=== PATIENT | male | born 1990 | race Caucasian/White ===

== ENCOUNTER 2017-08-14 18:27 | Inpatient (IN) | payer MEDICAID ==
[2017-08-14 18:56] LABS: % EOSINOPHILS 1.3 % (0.0-5.0); % MONOCYTES 6.3 % (2.0-10.0); % NEUTROPHILS 63.4 % (40.0-80.0); BASOPHILE ABSOLUTE 0.1 Th/cumm (0-0.2); EOSINOPHILE ABSOLUTE 0.1 Th/cmm (0.1-0.4); HEMATOCRIT 41.6 % (41.0-60); HEMOGLOBIN 14.1 gm/dL (12-16); MEAN CELL VOLUME 88.2 fl (80-99); MEAN CORPUSCULAR HEMOGLOBIN 29.9 pg (26.0-30.0); MEAN CORPUSCULAR HGB CONC 33.9 pg (28.0-36.0); MEAN PLATELET VOLUME 8.3 fl; MONOCYTE ABSOLUTE 0.4 Th/cmm (0.3-1.0); NEUTROPHILE ABSOLUTE 4.5 Th/cmm (1.8-8.0); PLATELET COUNT 272 Th/cmm (150-400); RED BLOOD COUNT 4.72 Mil/cmm (4.30-5.70); RED CELL DISTRIBUTION WIDTH 12.2 % (11.5-20.0); WHITE BLOOD COUNT 7.1 Th/cmm (4.8-10.8)
[2017-08-14 19:06] LABS: INR 0.96 (0.5-1.4)
--- NOTE | 2017-08-14 19:10 | ED Physician Chart ---
ED Chief Complaint/HPI - Patient Information Date Seen:: 08/14/17 Time Seen:: 18:32 Chief Complaint:: CHEST PAIN History of Present Illness:: THIS IS A 27 YO MALE WHO STATES THAT HE HAS SUBSTERNAL CHEST PAIN THAT STARTED THIS MORNING IS STILL HAVING PAIN. HE DENIES HEART PROBLEMS, HYPERTENSION AND DIABETES. HE DENIES DIZZINES AND SHORTNESS OF BREATH BUT HAS PAIN ON BREATHING. HE STATES THAT LATELY HE HAS BEEN COUGHING UP BLOOD. HE ALSO STATED THAT TWO WEEKS AGO HE HAD A BAD UPPER RESPIRATORY TRACT INFECTION BUT DID GO TO THE DOCTOR. HE STATES THAT THE PAIN IS 7/10 AND RADIATES TO BOTH SHOULDER ON DEEP INSPIRATION. Allergies:: Allergies Allergy/AdvReac Type Severity Reaction Status Date / Time No Known Allergies Allergy Verified 08/14/17 18:30 Vitals:: Vital Signs - 8 hr 08/14/17 18:31 Temp 99.0 F HR 89 RR 18 BP 130/83 O2 Sat % 98 Historian:: Patient Review:: Nurse's Note Reviewed ED Review of Systems - Review of Systems General/Constitutional: No fever, No chills, No weight loss, No weakness, No diaphoresis, No edema, No loss of appetite Skin: No skin lesions, No rash, No bruising Head: No headache, No light-headedness Eyes: No loss of vision, No pain, No diplopia ENT: No earache, No nasal drainage, No sore throat, No tinnitus Neck: No neck pain, No swelling, No thyromegaly, No stiffness, No mass noted Cardio Vascular: Chest pain, No palpitations, No PND, No orthopnea, No edema Pulmonary: No SOB, Cough, Sputum, No wheezing GI: No nausea, No vomiting, No diarrhea, No pain, No melena, No hematochezia, No constipation, No hematemesis G/U: No dysuria, No frequency, No hematuria Musculoskeletal: No bone or joint pain, No back pain, No muscle pain Endocrine: No polyuria, No polydipsia Psychiatric: No prior psych history, No depression, No anxiety, No suicidal ideation Hematopoietic: No bruising, No lymphadenopathy Allergic/Immuno: No urticaria, No angioedema Neurological: No syncope, No focal symptoms, No weakness, No paresthesia, No headache, No seizure, No dizziness, No confusion, No vertigo ED Past Medical History - Past Medical History Obtainable: Yes Past Medical History: No significant medical hx Family History: None Social History: Non Smoker, No Alcohol, No Drug Use, Employed Surgical History: None Psychiatricy History: None Medication: Reviewed Family Medical History - Family Member Mother History Unknown: Yes ED Physical Exam - Physical Examination General/Constitutional: Awake, Well-developed, well-nourished, Alert, No distress, GCS 15, Non-toxic appearing, Ambulatory Head: Atraumatic Eyes: Lids, conjuctiva normal, PERRL, EOMI Skin: Nl inspection, No rash, No skin lesions, No ecchymosis, Well hydrated, No lymphadenopathy ENMT: External ears, nose nl, Nasal exam nl, Lips, teeth, gums nl Neck: Nontender, Full ROM w/o pain, No JVD, No nuchal rigidity, No bruit, No mass, No stridor Respiratory: Nl effort/Exclusion, Clear to Auscultation, No Wheeze/Rhonchi/Rales Other Respiratory comments:: A FEW RHONCHI HEARD BILATERALLY. Cardio Vascular: RRR, No murmur, gallop, rubs, NL S1 S2 GI: No tenderness/rebounding/guarding, No organomegaly, No hernia, Normal BS's, Nondistended, No mass/bruits, No McBurney tenderness : No CVA tenderness Extremities: No tenderness or effusion, Full ROM, normal strength in all extremities, No edema, Normal digits & nails Neuro/Psych: Alert/oriented, DTR's symmetric, Normal sensory exam, Normal motor strength, Judgement/insight normal, Mood normal, Normal gait, No focal deficits Misc: Normal back, No paraspinal tenderness ED Labs/Radiology/EKG Results - Lab Results Results: Laboratory Tests 08/14/17 18:45 WBC 7.1 RBC 4.72 Hgb 14.1 Hct 41.6 MCV 88.2 MCH 29.9 MCHC Differential 33.9 RDW 12.2 Plt Count 272 MPV 8.3 Neutrophils % 63.4 Lymphocytes % 28.0 Monocytes % 6.3 Eosinophils % 1.3 Basophils % 1.0 - Radiology Results Results: CTA SCAN OF THE CHEST = PULMONARY EMBOLUS - EKG Interpretations EKG Time:: 18:29 Rate & Rhythm: RATE= 89, SINUS [place]: RIGHT AXIS Intervals: NO ECTOPY NOTED ED Assessment - Assessment General Assessment: PULMONARY EMBOLUS ED Septic Shock - . Is Septic Shock (SBP<90, OR Lactate>4 mmol\L) present?: No - <6hrs of presentation: Vital Signs: Vital Signs - 8 hr 08/14/17 18:31 Temp 99.0 F HR 89 RR 18 BP 130/83 O2 Sat % 98 ED Reassessment (Disposition) - Reassessment Reassessment Condition:: Improved - Diagnosis Diagnosis:: ACUTE PULMONARY EMBOLUS - Patient Disposition Discharge/Transfer:: Acute Care w/in this hosp Admitted to:: Telemetry Admitting Medical Physician:: Karan Man Condition at Disposition:: Stable ED Discharge Plan - Patient Disposition Admit/Discharge/Transfer: Acute Care w/in this hosp Condition at Disposition: Stable
[2017-08-14 19:14] LABS: ALB/GLOB RATIO 1.8 (1.0-1.8); ALBUMIN 4.6 gm/dL (4.2-5.5); ALKALINE PHOSPHATASE 47 U/L (34-104); ANION GAP 11.3 (7.0-16.0); BILIRUBIN,TOTAL 0.4 mg/dL (0.3-1.0); BUN - UREA NITROGEN 11 mg/dL (7-25); CALCIUM SERUM 10.2 mg/dL (8.6-10.3); CARBON DIOXIDE 26.3 mEq/L (21.0-31.0); CHLORIDE 102 mEq/L (98-107); CHOLESTEROL 205 mg/dL (<200); CREATININE - SERUM 1.1 mg/dL (0.7-1.3); GFR AFRICAN-AMERICAN > 60.0 ml/min (>90); GFR NON AFRICAN-AMERICAN > 60.0 ml/min; GLUCOSE 104 mg/dL (70-105); HDL -HIGH DENSITY LIPOPROTEIN 45 mg/dL (23-92); POTASSIUM SERUM 3.6 mEq/L (3.5-5.1); SGOT 15 U/L (13-39); SGPT/ALT 23 U/L (7-52); SODIUM SERUM 136 mEq/L (136-145); TOTAL PROTEIN,SERUM 7.2 gm/dL (6.0-8.3); TRIGLYCERIDES 109 mg/dL (<150)
[2017-08-14] MEDS ORDERED: IOHEXOL 300mgI/mL 100 ML VIAL ONE (19:20)
[2017-08-14 20:57] LABS: URINE MICROSCOPIC INDICATED? YES; URINE SOURCE CLEAN C
[2017-08-14 20:58] LABS: URINE BILIRUBIN NEGATIVE (NEGATIVE); URINE BLOOD NEGATIVE (NEGATIVE); URINE GLUCOSE (UA) NEGATIVE (NEGATIVE); URINE KETONE NEGATIVE (NEGATIVE); URINE LEUKOCYTE ESTERASE NEGATIVE (NEGATIVE); URINE NITRATE NEGATIVE (NEGATIVE); URINE PH 6.5 (4.6 - 8.0); URINE PROTEIN NEGATIVE (NEGATIVE); URINE UROBILINOGEN 0.2 E.U./dL (0.2 - 1.0)
[2017-08-14 21:03] LABS: URINE CLARITY CLEAR (CLEAR); URINE COLOR YELLOW
[2017-08-14 21:10] LABS: URINE BACTERIA NONE SEEN /hpf (NONE SEEN); URINE EPITHELIAL CELLS NONE SEEN /lpf (FEW); URINE RBC NONE SEEN /hpf (0-5); URINE WBC NONE SEEN /hpf (0-5)
[2017-08-14] MEDS ORDERED: Hydrocodone/APAP 5mg/325mg Tab PO PRN (21:28)
[2017-08-14 22:44] VITALS: BP 137/79
[2017-08-15] MEDS ORDERED: Heparin 25,000 Units In D5W 25,000 UNITS/250 ML BAG IV PRN
[2017-08-15 05:09] LABS: % BASOPHILS 0.7 % (0.0-2.0); % EOSINOPHILS 0.9 % (0.0-5.0); % LYMPHOCYTES 28.3 % (20.0-50.0); % MONOCYTES 5.9 % (2.0-10.0); % NEUTROPHILS 64.2 % (40.0-80.0); BASOPHILE ABSOLUTE 0.1 Th/cumm (0-0.2); EOSINOPHILE ABSOLUTE 0.1 Th/cmm (0.1-0.4); HEMATOCRIT 40.3 % (41.0-60); HEMOGLOBIN 13.5 gm/dL (12-16); LYMPHOCYTE ABSOLUTE 2.6 Th/cmm (1.5-3.0); MEAN CELL VOLUME 88.5 fl (80-99); MEAN CORPUSCULAR HEMOGLOBIN 29.7 pg (26.0-30.0); MEAN CORPUSCULAR HGB CONC 33.6 pg (28.0-36.0); MEAN PLATELET VOLUME 8.6 fl; MONOCYTE ABSOLUTE 0.5 Th/cmm (0.3-1.0); NEUTROPHILE ABSOLUTE 5.9 Th/cmm (1.8-8.0); PLATELET COUNT 272 Th/cmm (150-400); RED BLOOD COUNT 4.55 Mil/cmm (4.30-5.70); WHITE BLOOD COUNT 9.2 Th/cmm (4.8-10.8)
[2017-08-15 05:32] LABS: ALB/GLOB RATIO 1.7 (1.0-1.8); ALBUMIN 4.1 gm/dL (4.2-5.5); ALKALINE PHOSPHATASE 42 U/L (34-104); ANION GAP 11.8 (7.0-16.0); BILIRUBIN,TOTAL 0.4 mg/dL (0.3-1.0); BUN - UREA NITROGEN 10 mg/dL (7-25); CALCIUM SERUM 9.6 mg/dL (8.6-10.3); CARBON DIOXIDE 25.7 mEq/L (21.0-31.0); CHLORIDE 102 mEq/L (98-107); CREATININE - SERUM 1.1 mg/dL (0.7-1.3); GFR AFRICAN-AMERICAN > 60.0 ml/min (>90); GFR NON AFRICAN-AMERICAN > 60.0 ml/min; GLUCOSE 104 mg/dL (70-105); POTASSIUM SERUM 3.5 mEq/L (3.5-5.1); SGOT 16 U/L (13-39); SGPT/ALT 22 U/L (7-52); SODIUM SERUM 136 mEq/L (136-145); TOTAL PROTEIN,SERUM 6.5 gm/dL (6.0-8.3)
[2017-08-15] MEDS: Albuterol/Ipratropium Neb 3 ML AERS HHN SCH ×4 (07:20→20:40)
--- NOTE | 2017-08-15 07:49 | Diagnostic Imaging Report ---
Bilateral lower extremity DVT study HISTORY: Pain COMPARISON: None Technique: Longitudinal and transverse sonographic images of the bilateral lower extremity veins were obtained with doppler analysis. FINDINGS: There is normal compressibility, augmentation and phasicity of the bilateral common femoral, superficial femoral, popliteal, and posterior tibial veins. No thrombus is visualized. IMPRESSION: No evidence of thrombus within the bilateral lower extremity veins.
--- NOTE | 2017-08-15 08:03 | Diagnostic Imaging Report ---
CT Chest PE study Indication: Hemoptysis Comparison: None, Technique: Axial images were obtained from the base of the neck to the upper abdomen, following administration of IV contrast, PE protocol. Multiplanar reconstructions were made. total DLP: 384, CTDI13 FINDINGS: There is no evidence of mediastinal lymphadenopathy. No evidence of an aortic aneurysm. Minimal haziness of the prevascular space is noted most likely patient service representative of thymic remnant tissue. Heart size is normal. No pericardial effusion is identified. Assessment of the pulmonary arterial vasculature is limited due to suboptimal phase of contrast opacification. There is area of low density seen within the left lower lobe segmental subsegmental pulmonary arterial vasculature best seen on image 88 - 90, series 4. Evaluation of the lung osorio demonstrates hypoventilatory and atelectatic changes. No focal consolidation or effusions. The upper abdomen demonstrates no acute abnormalities. Osseous structures demonstrate no acute abnormalities. IMPRESSION: Suboptimal assessment of pulmonary arterial vasculature due to suboptimal phase of contrast opacification. There is suggestion of small amount of nonocclusive pulmonary emboli along the left lower lobe subsegmental branches. Correlation needs to made with patient's clinical findings. If necessary, either repeat exam or nuclear medicine VQ scan may be obtained for further assessment. No focal consolidation identified. Minimal hazy density of the prevascular space likely representing remnant thymic tissue.
--- NOTE | 2017-08-15 09:48 | History & Physical ---
ADMIT DATE: PATIENT'S IDENTIFICATION: A 27-year-old male. CHIEF COMPLAINT: Cough, congestion, shortness of breath and chest pain while taking deep breath. HISTORY OF PRESENT ILLNESS: A 27-year-old male with no significant past medical history, started for cough, congestion for last 2 weeks, noted to have some shortness of breath and later on noticed that he was having blood-tinged sputum and every time he was taking deep breath, it was hurting, so he brought himself to the Emergency Room. The patient was seen by Emergency Room MD. The patient did have a CT angio of the chest, abdomen and pelvis, which did reveal the patient had a pulmonary embolus. The patient has been advised to be admitted in the hospital. PAST MEDICAL HISTORY: None. MEDICATIONS AT HOME: None. ALLERGIES: None. 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 The patient has occasional smoking, but no alcohol or drug use. FAMILY MEDICAL HISTORY: Remarkable for diabetes and cancer. REVIEW OF SYSTEMS: The patient denies any headache, blurred vision, double vision, dysphagia, odynophagia, runny nose, stuffy nose, fever, chills, abdominal pain, nausea, vomiting, hematemesis, hematuria, hematochezia, or melena. No history of paroxysmal nocturnal dyspnea, orthopnea. PHYSICAL EXAMINATION: GENERAL: Alert, awake, oriented, lying in the bed without any acute distress. VITAL SIGNS: Temperature 97.2, pulse 62, respiratory rate 18, blood pressure 120/63. HEENT: Normocephalic, atraumatic. Extraocular muscles are intact. Tongue more pink and coated. No oral lesion, no exudate. No sinus tenderness. External auditory canal and tympanic membranes are well visualized. NECK: Supple, no JVD. No hepatojugular reflex. No lymphadenopathy, thyromegaly or carotid bruit. HEART: Both heart sounds are regular. No S3, no S4, no murmur. CHEST AND LUNG: Equal in expansion, no wheezing, no crackles. ABDOMEN: Soft. No guarding, no rigidity. Liver and spleen not palpable. No palpable mass. EXTREMITIES: No edema, no cyanosis. NEUROLOGIC EXAM: Nonfocal. AVAILABLE DIAGNOSTIC DATA: Bilateral lower extremity venous Doppler study unremarkable for deep venous thrombosis. CBC, chemistry panels are unremarkable. D-dimer was 526. CT chest, abdomen and pelvis consistent with suboptimal assessment of pulmonary artery vasculature due to suboptimal phase of contrast suggestion of a small amount of nonocclusive pulmonary emboli along the left lower lobe subsegmental branches noted. V/Q scan has been recommended as well. CLINICAL IMPRESSION: 1. Question of pulmonary embolus. 2. Tracheobronchitis. 3. History of knee surgery. PLAN: The patient was admitted by me last night, the patient has already hypercoagulable workup has been ordered. IV heparin has been started. The patient will be seen by talent sourcing specialist in the view of questionable CT chest. V/Q scan will be done as well. Further recommendation will be given after this V/Q scan and will continue follow consult and recommendations. Meanwhile, the patient will be treated with antibiotic for tracheobronchitis and p.r.n. inhalation therapy. Care plan has been reviewed and discussed with staff and the patient. JOB# [id number]
--- NOTE | 2017-08-15 20:49 | Consultation ---
DATE OF CONSULTATION: 08/15/2017 REFERRING PHYSICIAN: Karan Man MD. REASON FOR CONSULTATION: Possible pulmonary emboli. HISTORY OF PRESENT ILLNESS: The patient is a 27-year-old male with no previous medical history. He was having viral illness for the past 10 days and he had cough that had a tinge of blood yesterday associated with some pressure in chest. The patient underwent a CT angiogram of the chest that was reported to be a suboptimal opacification with the possibility of subsegmental embolization. The patient was started on heparin and I was asked to evaluate. PAST MEDICAL HISTORY: None. PAST SURGICAL HISTORY: Left knee surgery, sports injuries with ACL repair. MEDICATIONS AT HOME: None. 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 FAMILY HISTORY: Diabetes. PHYSICAL EXAMINATION: GENERAL: The patient is awake, alert, oriented. VITAL SIGNS: Stable. HEENT: Atraumatic, no oral lesions. NECK: Supple. CHEST: Good air entry. ABDOMEN: Soft. EXTREMITIES: Scars on the left knee. Otherwise, exam is unremarkable. LABORATORY DATA: CBC, coagulation panel, liver function and chemistry are all within normal limits. D-dimer slightly elevated at 524. The upper limit of normal for the lab is 400. CT angiogram of chest reports suboptimal assessment of the pulmonary vasculature because of suboptimal contrast opacification. There is suggestion of a small amount of nonocclusive pulmonary emboli along with left lower lobe subsegmental branches. Lower extremity venous duplex study showed no evidence of thrombosis. ASSESSMENT AND PLAN: The patient has no risk factors for thrombosis and the imaging of the CT angiogram is suboptimal opacification, probably accounting for what is seen as subsegmental partial thrombi. Given the low risk in this patient by the absence of risk factors and the questionable opacification on the CT scan, we will discontinue anticoagulation and await the confirmatory testing that was suggested by the radiologist, V/Q scan and make a decision accordingly. Otherwise, the patient will not need anticoagulation at this point in time and does not need to be worked up for hypercoagulable state. Thank you for the opportunity to participate in the care of this interesting case with you. JOB# [id number]
--- NOTE | 2017-08-16 03:47 | Consultation ---
DATE OF CONSULTATION: 08/15/2017 INFECTIOUS DISEASE CONSULTATION REFERRING PHYSICIAN: Karan Man M.D. REASON FOR CONSULTATION: Tracheobronchitis. HISTORY OF PRESENT ILLNESS: The patient is a 27-year-old male with no significant past medical history, presented with cough and congestion for last 2-3 weeks. It was associated with some shortness of breath. The patient started having chest pain mainly with deep breathing. He had some blood in the cough. Otherwise, blood in the cough is clearing up. On initial evaluation, his temperature was 99 degrees Fahrenheit and WBC count was 7100. The patient was started on Zithromax, suspecting tracheobronchitis. CT angio of the chest was performed and it showed suspected pulmonary embolism. Venous ultrasound of the lower extremities showed no evidence of any thrombus. V/Q scan was performed, result is pending. ALLERGIES: NKDA. MEDICATIONS: As per medication reconciliation sheet. PAST MEDICAL HISTORY: None significant. SOCIAL HISTORY: The patient denies any smoking, alcohol, or drug use. 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 FAMILY HISTORY: No history of any significant disease. No evidence of any coagulopathy, pulmonary embolism, thrombus, or DVT. REVIEW OF SYSTEMS: GENERAL: The patient denies any fever or chills. HEENT: No diplopia. No photophobia. No sore throat. RESPIRATORY: The patient has cough, hemoptysis present. No loss of ____. Cough is dry. CARDIOVASCULAR: No chest pain or palpitation. GASTROINTESTINAL: No nausea. No vomiting. No diarrhea. No constipation. GENITOURINARY: No dysuria. NEUROLOGIC: No headache. No dizziness. No focal weakness. MUSCULOSKELETAL: The patient has chest pain in the costochondral junction of lower ribs. PHYSICAL EXAMINATION: CURRENT VITAL SIGNS: Show temperature is 97.4 degrees Fahrenheit, pulse is 94, respirations 18, blood pressure is 109/67. GENERAL: The patient is comfortable, lying in the bed, not in acute distress, well nourished, well developed. HEENT: Head is normocephalic, atraumatic. Oral cavity moist. [place] tongue. Eyes: No pallor, no icterus. PERRLA, EOMI. NECK: Supple. No JVD. No carotid bruit. Trachea in midline. CHEST: Bilateral breath sounds. No crackles or wheezing. The patient has tenderness of the lower costochondral junction anteriorly. HEART: S1, S2 within normal limits. Regular rhythm. No murmur. No gallop. ABDOMEN: Soft, nontender, nondistended. Bowel sounds present. EXTREMITIES: No cyanosis. No clubbing. No edema. NEUROLOGICAL: Alert, awake, oriented x 3. EXTREMITIES: Lower extremities: No cyanosis. No clubbing. No edema. The patient has no calf tenderness. Homans sign is negative. NEUROLOGIC: No headache. No dizziness. No focal weakness. LABORATORY DATA: Lab gregory, current labs show WBC 9200, hemoglobin 13.5, hematocrit 40.3, platelets are 272,000. PTT is 82.4. Sodium 136, potassium 3.5, chloride 102, bicarbonate is 25.7, BUN is 10, creatinine 1, glucose is 104. RADIOLOGY: CT angio as reported above. Venous Duplex of the lower extremities suggests no evidence of any embolus or thrombosis. IMPRESSION: 1. Tracheobronchitis. Pulmonary embolism suspected. 2. Costochondritis, chest pain, most likely due to postoperative costochondritis. Recommend to continue same treatment. RECOMMENDATIONS: As per the Pulmonary consultation. Anticoagulation as per the Pulmonary and Hematology consultants. Antibiotic was continued, Zithromax at this time. Thank you, Dr. Man for involving me in taking care of this patient. JOB# [id number]
[2017-08-16] MEDS: Albuterol/Ipratropium Neb 3 ML AERS HHN SCH ×2 (07:27→11:34)
--- NOTE | 2017-08-16 08:25 | Diagnostic Imaging Report ---
Nuclear medicine VQ scan HISTORY: Shortness of breath, rule out pulmonary embolus COMPARISON: CT angiogram chest on 08-30 Technique/procedure: For the ventilation portion of examination 30.8 mCi of technetium labeled DTPA was administered via aerosol and multiple scintigraphic images of the lungs were obtained. For the perfusion portion of examination 4.2 millicuries of technetium 99 labeled MAA was administered intravenously and multiple scintigraphic images of the lungs were obtained. Normal perfusion and ventilation is demonstrated. No V/Q mismatches identified. IMPRESSION: Negative VQ scan for pulmonary embolus.
[2017-08-16 09:14] LABS: DIL RUSSELL VIPER VENOM TIME 30.5 sec (0.0-47.0)
[2017-08-16 10:27] LABS: PROTEIN C ACTIVITY (FUNCTIONAL 162
[2017-08-16 10:45] LABS: PROTEIN S ANTIGEN SEE REF. LAB REPORT
--- NOTE | 2017-08-16 21:05 | Discharge Summary ---
DATE OF DISCHARGE: 08/16/2017 PRINCIPAL DIAGNOSES: 1. Acute tracheobronchitis with bronchospasm. 2. Chest pain, most likely pleurisy versus costochondritis. 3. Questionable pulmonary embolus by CT angio with a normal V/Q scan. BRIEF STATEMENT FOR THE REASON FOR ADMISSION: A 27-year-old male admitted to the hospital after I was told by Emergency Room MD that patient's CT angio was positive for pulmonary embolism. Please refer to my H and P for further information. HOSPITAL COURSE: The patient was admitted by me overnight with IV heparin drip with hypercoagulable workup along with Infectious as well as Hematology/Oncology consultations. I did evaluate the patient next day, noted to have questionable pulmonary embolus. V/Q scan was done, which reported completely normal. The patient was also seen by Hematology/Oncology and Infectious Disease. They recommended the patient does not need any further workup. The patient has been discharged home with Zithromax and ibuprofen to take at home. If recurrent symptoms, the patient should go to Emergency Room. JOB# [id number]
--- NOTE | 2017-08-16 23:58 | Progress Notes ---
DATE: 08/16/2017 IDENTIFICATION: A 27-year-old male. The patient is seen and examined. The patient denies any chest pain, shortness of breath, palpitation, dizziness, nausea, vomiting. V/Q scan is done, which is completely normal. The patient has been seen by hematology/oncologist. Based on his recommendation, the patient does not need any further workup, considering his V/Q scan is normal. The patient does feel better as well. PHYSICAL EXAMINATION: VITAL SIGNS: Temperature 97.4, pulse 65, respiratory 18, blood pressure is 114/64. HEENT: No facial asymmetry. NECK: Supple, no JVD. HEART: regular. CHEST AND LUNG: Equal in expansion, no wheezing, no crackles. ABDOMEN: Soft. No guarding, rigidity. Bowel sounds are present. No palpable mass. EXTREMITIES: No edema. NEUROLOGIC: Nonfocal. CLINICAL IMPRESSION: 1. Questionable pulmonary embolus by CT angio. V/Q scan is normal. No risk factor. 2. Tracheobronchitis with bronchospasm and possible pleurisy. PLAN: Discharge this patient to home based on currently performed worked up in the hospital. The patient is to take antibiotic and ibuprofen for pain. The patient should see service desk associate in 1 week. If recurrent symptoms, the patient is advised to go to Emergency Room. JOB# [id number]
== END 2017-08-16 14:05 | disposition home or self-care (01) | DRG 145 ==
LOC: ER 18:27 → TELE 21:15
PROVIDERS: ADMIT Internal Medicine; ATTEND Internal Medicine
DX: J20.9 Acute bronchitis, unspecified (principal); I26.99 Other pulmonary embolism without acute cor pulmonale; M94.0 Chondrocostal junction syndrome [Tietze]; R09.1 Pleurisy; Z83.3 Family history of diabetes mellitus; Z80.9 Family history of malignant neoplasm, unspecified
CPT/HCPCS: 36415-UA; 71275-TC; 80053-TC; 80061-TC; 81001-TC; 84443-TC; 84484-TC; 85025-TC; 85300-90; 85302-90; 85303-90; 85305-90; 85306-90; 85379-TC; 85610-TC; 85613; 85613-90; 85730-90; 85730-TC; 93005; 93970-TC-50; 94760; A9540; A9567; J1644; Q9967

== ENCOUNTER 2017-09-26 19:53 | Emergency (ER) | payer MEDICAID ==
--- NOTE | 2017-09-26 20:08 | ED Physician Chart ---
ED Chief Complaint/HPI - Patient Information Date Seen:: 09/26/17 Time Seen:: 20:03 Chief Complaint:: Chest pain History of Present Illness:: 27 yo male had mid chest pain radiating to the left, fluctuating 4-8/10 for 2 days, no apparent exacerbating or relieving factors. Patient denied chest pressure or shortness of breath. Patient had history of right chest pain and was hospitalized August 14- August 16, 2017 with negative work up except possible left lower extremity DVT. 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 Father had HTN, CHF, DM II. Allergies:: Allergies Allergy/AdvReac Type Severity Reaction Status Date / Time No Known Allergies Allergy Verified 08/14/17 18:30 ED Review of Systems - Review of Systems General/Constitutional: No fever, No chills Skin: No skin lesions Head: No headache Eyes: No pain ENT: No nasal drainage Neck: No neck pain Cardio Vascular: Chest pain Pulmonary: No SOB GI: No nausea, No vomiting Musculoskeletal: No bone or joint pain Neurological: No focal symptoms ED Past Medical History - Past Medical History Past Medical History: DVT/PE, Other (chest pain ) Social History: Non Smoker, Alcohol, No Drug Use Surgical History: other (Left knee surgeries) Family Medical History - Family Member Mother History Unknown: Yes ED Physical Exam - Physical Examination General/Constitutional: Awake, Alert Head: Atraumatic Eyes: PERRL Skin: No skin lesions ENMT: Nasal exam nl Neck: No nuchal rigidity Respiratory: Clear to Auscultation Other Respiratory comments:: Left mid chest tenderness at para sternal areas Cardio Vascular: RRR, No murmur, gallop, rubs, NL S1 S2 GI: No tenderness/rebounding/guarding Extremities: normal strength in all extremities Neuro/Psych: No focal deficits ED Labs/Radiology/EKG Results - Lab Results Results: Laboratory Last Values WBC 6.8 Th/cmm (4.8-10.8) 09/26/17 20:05 RBC 4.40 Mil/cmm (4.30-5.70) 09/26/17 20:05 Hgb 13.4 gm/dL (12-16) 09/26/17 20:05 Hct 39.3 % (41.0-60) L 09/26/17 20:05 MCV 89.3 fl (80-99) 09/26/17 20:05 MCH 30.5 pg (26.0-30.0) H 09/26/17 20:05 MCHC Differential 34.2 pg (28.0-36.0) 09/26/17 20:05 RDW 12.7 % (11.5-20.0) 09/26/17 20:05 Plt Count 219 Th/cmm (150-400) 09/26/17 20:05 MPV 8.5 fl 09/26/17 20:05 Neutrophils % 53.4 % (40.0-80.0) 09/26/17 20:05 Lymphocytes % 36.2 % (20.0-50.0) 09/26/17 20:05 Monocytes % 8.4 % (2.0-10.0) 09/26/17 20:05 Eosinophils % 1.4 % (0.0-5.0) 09/26/17 20:05 Basophils % 0.6 % (0.0-2.0) 09/26/17 20:05 PT 10.3 SECONDS (9.5-11.5) 09/26/17 20:05 INR 0.99 (0.5-1.4) 09/26/17 20:05 PTT (Actin FS) 23.0 SECONDS (26.0-38.0) L 09/26/17 20:05 D-Dimer 360 ng/mL (100-400) 09/26/17 20:05 Sodium 137 mEq/L (136-145) 09/26/17 20:05 Potassium 3.5 mEq/L (3.5-5.1) 09/26/17 20:05 Chloride 105 mEq/L (98-107) 09/26/17 20:05 Carbon Dioxide 24.7 mEq/L (21.0-31.0) 09/26/17 20:05 Anion Gap 10.8 (7.0-16.0) 09/26/17 20:05 BUN 15 mg/dL (7-25) 09/26/17 20:05 Creatinine 1.0 mg/dL (0.7-1.3) 09/26/17 20:05 Est GFR ( Amer) > 60.0 ml/min (>90) 09/26/17 20:05 Est GFR (Non-Af Amer) > 60.0 ml/min 09/26/17 20:05 BUN/Creatinine Ratio 15.0 09/26/17 20:05 Glucose 99 mg/dL (70-105) 09/26/17 20:05 Calcium 9.6 mg/dL (8.6-10.3) 09/26/17 20:05 Total Bilirubin 0.4 mg/dL (0.3-1.0) 09/26/17 20:05 AST 16 U/L (13-39) 09/26/17 20:05 ALT 16 U/L (7-52) 09/26/17 20:05 Alkaline Phosphatase 38 U/L (34-104) 09/26/17 20:05 Troponin I < 0.01 ng/mL (0.01-0.05) L 09/26/17 20:05 B-Natriuretic Peptide 21.9 pg/mL (5.0-100.0) 09/26/17 20:05 Total Protein 6.7 gm/dL (6.0-8.3) 09/26/17 20:05 Albumin 4.3 gm/dL (4.2-5.5) 09/26/17 20:05 Globulin 2.4 gm/dL 09/26/17 20:05 Albumin/Globulin Ratio 1.8 (1.0-1.8) 09/26/17 20:05 - Radiology Results Results: CXR: no focal consolidation - EKG Interpretations Rate & Rhythm: normal sinus rhythm [place]: normal P axis Intervals: normal intervals Comments:: No ST, T waves abnormalities ED Assessment - Assessment General Assessment: Chest pain Costochondritis Assessment/Comments:: CBC, CMP, BNP, Trop I, PT/PTT, D-dimer CXR, EKG Aspirin Toradol 30mg IM D/c home F/u PCP or return to ER if symptoms worsen ED Septic Shock - . Is Septic Shock (SBP<90, OR Lactate>4 mmol\L) present?: No ED Reassessment (Disposition) - Reassessment Reassessment Condition:: Improved - Patient Disposition Discharge/Transfer:: Home
[2017-09-26] MEDS ORDERED: Aspirin 81mg Chewable Tab PO STA (20:19)
[2017-09-26] MEDS ORDERED: Aspirin 81mg Chewable Tab ONE (20:22)
[2017-09-26 20:47] LABS: % BASOPHILS 0.6 % (0.0-2.0); % EOSINOPHILS 1.4 % (0.0-5.0); % LYMPHOCYTES 36.2 % (20.0-50.0); % MONOCYTES 8.4 % (2.0-10.0); % NEUTROPHILS 53.4 % (40.0-80.0); EOSINOPHILE ABSOLUTE 0.1 Th/cmm (0.1-0.4); HEMATOCRIT 39.3 % (41.0-60); HEMOGLOBIN 13.4 gm/dL (12-16); LYMPHOCYTE ABSOLUTE 2.5 Th/cmm (1.5-3.0); MEAN CELL VOLUME 89.3 fl (80-99); MEAN CORPUSCULAR HEMOGLOBIN 30.5 pg (26.0-30.0); MEAN CORPUSCULAR HGB CONC 34.2 pg (28.0-36.0); MEAN PLATELET VOLUME 8.5 fl; MONOCYTE ABSOLUTE 0.6 Th/cmm (0.3-1.0); NEUTROPHILE ABSOLUTE 3.6 Th/cmm (1.8-8.0); PLATELET COUNT 219 Th/cmm (150-400); RED CELL DISTRIBUTION WIDTH 12.7 % (11.5-20.0); WHITE BLOOD COUNT 6.8 Th/cmm (4.8-10.8)
[2017-09-26 20:57] LABS: INR 0.99 (0.5-1.4); PROTHROMBIN TIME (TEST) 10.3 SECONDS (9.5-11.5)
[2017-09-26 20:58] LABS: ALB/GLOB RATIO 1.8 (1.0-1.8); ALBUMIN 4.3 gm/dL (4.2-5.5); ALKALINE PHOSPHATASE 38 U/L (34-104); ANION GAP 10.8 (7.0-16.0); BILIRUBIN,TOTAL 0.4 mg/dL (0.3-1.0); BUN - UREA NITROGEN 15 mg/dL (7-25); CALCIUM SERUM 9.6 mg/dL (8.6-10.3); CARBON DIOXIDE 24.7 mEq/L (21.0-31.0); CHLORIDE 105 mEq/L (98-107); GFR AFRICAN-AMERICAN > 60.0 ml/min (>90); GFR NON AFRICAN-AMERICAN > 60.0 ml/min; GLUCOSE 99 mg/dL (70-105); POTASSIUM SERUM 3.5 mEq/L (3.5-5.1); SGOT 16 U/L (13-39); SGPT/ALT 16 U/L (7-52); SODIUM SERUM 137 mEq/L (136-145); TOTAL PROTEIN,SERUM 6.7 gm/dL (6.0-8.3)
[2017-09-26 21:04] LABS: DDIMER QUANT 360 ng/mL (100-400)
--- NOTE | 2017-09-27 08:49 | Diagnostic Imaging Report ---
CHEST X-RAY: AP view INDICATION: pain COMPARISON: None FINDINGS: There is no focal consolidation or pleural effusions The heart is normal in size. The osseous structures demonstrate no acute abnormalities. IMPRESSION: No acute cardiopulmonary disease.
== END 2017-09-26 21:14 | disposition home or self-care (01) ==
LOC: ER 19:53
DX: M94.0 Chondrocostal junction syndrome [Tietze] (principal); Z86.718 Personal history of other venous thrombosis and embolism
CPT/HCPCS: 99285; 96372; 93005; 71045; 84484; 83880; 36415; 85379; 85025; 85610; 80053; J1885; Z7610

== ENCOUNTER 2017-11-23 23:26 | Emergency (ER) | payer SELFPAY ==
--- NOTE | 2017-11-24 00:07 | ED Physician Chart ---
ED Chief Complaint/HPI - Patient Information Date Seen:: 11/23/17 Time Seen:: 23:45 Chief Complaint:: chest pain History of Present Illness:: 1 hour ago patient developed dull 6/10 substernal chest pain and pain to the left of the sternum. Pain is now 4 out of 10. He estimates his heart rate was around 100 but did not take his pulse. Patient was admitted here 08/14/17 for chest pain. A chest CT angiogram was suggestive for small subsegmental embolus at the left lung base. The next day a VQ lung scan was done which was normal. Patient denies any history of smoking or illicit drug use. When patient has had wheezing in the past it has felt different than tonight's episode. Allergies:: Allergies Allergy/AdvReac Type Severity Reaction Status Date / Time No Known Allergies Allergy Verified 11/23/17 23:33 Vitals:: Vital Signs - 8 hr 11/23/17 23:26 Temp 97.9 F HR 93 RR 18 BP 139/82 O2 Sat % 99 Historian:: Patient Review:: Nurse's Note Reviewed ED Review of Systems - Review of Systems General/Constitutional: No fever, No chills Skin: No skin lesions Head: No headache, No light-headedness Eyes: No loss of vision ENT: No earache Neck: No neck pain, No swelling Cardio Vascular: Chest pain, Palpitations Pulmonary: SOB GI: No nausea, No vomiting, No diarrhea, No pain G/U: No dysuria Musculoskeletal: No bone or joint pain, No back pain, No muscle pain Endocrine: No polyuria, No polydipsia Psychiatric: No prior psych history Hematopoietic: No bruising Allergic/Immuno: No urticaria Neurological: No syncope ED Past Medical History - Past Medical History Past Medical History: Other (patient previously been diagnosed with bronchitis and has in the past had wheezing) Family History: Heart disease, Diabetes Melitus, HTN Social History: Non Smoker, Alcohol (occasional alcohol use), No Drug Use Surgical History: other (3 left knee surgeries) Psychiatricy History: None Medication: None Family Medical History - Family Member Mother History Unknown: Yes ED Physical Exam - Physical Examination General/Constitutional: Awake, Well-developed, well-nourished, Alert, No distress, GCS 15, Non-toxic appearing, Ambulatory Head: Atraumatic Eyes: Lids, conjuctiva normal, PERRL, EOMI Skin: Nl inspection, No rash, No skin lesions, No ecchymosis, Well hydrated, No lymphadenopathy ENMT: External ears, nose nl, Nasal exam nl, Lips, teeth, gums nl Neck: Nontender, Full ROM w/o pain, No JVD, No nuchal rigidity, No bruit, No mass, No stridor Respiratory: Nl effort/Exclusion, Clear to Auscultation, No Wheeze/Rhonchi/Rales Cardio Vascular: RRR, No murmur, gallop, rubs, NL S1 S2 GI: No tenderness/rebounding/guarding, No organomegaly, No hernia, Normal BS's, Nondistended, No mass/bruits, No McBurney tenderness : No CVA tenderness Extremities: No tenderness or effusion, Full ROM, normal strength in all extremities, No edema, Normal digits & nails Neuro/Psych: Alert/oriented, DTR's symmetric, Normal sensory exam, Normal motor strength, Judgement/insight normal, Mood normal, Normal gait, No focal deficits Misc: Normal back, No paraspinal tenderness ED Labs/Radiology/EKG Results - EKG Interpretations Rate & Rhythm: EKG showed a normal sinus rhythm with a rate of 86 Soldier: normal Comments:: Small Q waves in II, III, and aVF ED Assessment - Assessment General Assessment: Chance of coronary artery disease seems extremely low ED Septic Shock - . Is Septic Shock (SBP<90, OR Lactate>4 mmol\L) present?: No - <6hrs of presentation: Vital Signs: Vital Signs - 8 hr 11/23/17 23:26 Temp 97.9 F HR 93 RR 18 BP 139/82 O2 Sat % 99 ED Reassessment (Disposition) - Reassessment Reassessment Condition:: Unchanged - Diagnosis Diagnosis:: Atypical chest pain - Aftercare/Follow up Instructions Aftercare/Follow-Up Instructions:: Refer to Discharge Instructions - Patient Disposition Discharge/Transfer:: Home Condition at Disposition:: Stable, Improved
== END 2017-11-24 00:20 | disposition home or self-care (01) ==
LOC: ER 23:26
DX: R07.2 Precordial pain (principal); R06.02 Shortness of breath; Z98.890 Other specified postprocedural states
CPT/HCPCS: 93005; Z7502

== ENCOUNTER 2018-02-04 19:00 | Emergency (ER) | payer SELFPAY ==
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
--- NOTE | 2018-02-05 09:49 | Diagnostic Imaging Report ---
CT scan left knee HISTORY: Pain Total DLP equals 135 CTDI equals 8.9 Axial sections were obtained through the left knee. Additional coronal and sagittal reformatted images are provided. Generalized osteoporosis. Findings consistent with surgical defects noted within the distal femur and proximal tibia. Surgical screw noted within the proximal tibia. No acute abnormalities. No fractures. IMPRESSION: 1. No acute abnormalities 3. Generalized osteoporosis
== END 2018-02-04 20:25 | disposition home or self-care (01) ==
LOC: ER 19:00
DX: S83.92XA Sprain of unspecified site of left knee, initial encounter (principal); W50.0XXA Accidental hit or strike by another person, initial encounter; Y93.67 Activity, basketball; Y92.310 Basketball court as the place of occurrence of the external cause; Y99.8 Other external cause status
CPT/HCPCS: 73700-TC-LT; Z7502

== ENCOUNTER 2018-04-11 19:48 | Emergency (ER) | payer BC ==
[2018-04-11] MEDS ORDERED: Aspirin 81mg Chewable Tab PO STA (19:56)
[2018-04-11] MEDS ORDERED: Aspirin 81mg Chewable Tab ONE (19:59)
[2018-04-11 20:15] LABS: % BASOPHILS 0.4 % (0.0-2.0); % EOSINOPHILS 1.2 % (0.0-5.0); % LYMPHOCYTES 32.2 % (20.0-50.0); % MONOCYTES 4.4 % (2.0-10.0); % NEUTROPHILS 61.8 % (40.0-80.0); EOSINOPHILE ABSOLUTE 0.1 Th/cmm (0.1-0.4); HEMATOCRIT 44.7 % (41.0-60); HEMOGLOBIN 14.9 gm/dL (12-16); LYMPHOCYTE ABSOLUTE 2.4 Th/cmm (1.5-3.0); MEAN CELL VOLUME 88.2 fl (80-99); MEAN CORPUSCULAR HEMOGLOBIN 29.4 pg (26.0-30.0); MEAN CORPUSCULAR HGB CONC 33.3 pg (28.0-36.0); MEAN PLATELET VOLUME 8.2 fl; MONOCYTE ABSOLUTE 0.3 Th/cmm (0.3-1.0); NEUTROPHILE ABSOLUTE 4.5 Th/cmm (1.8-8.0); PLATELET COUNT 258 Th/cmm (150-400); RED BLOOD COUNT 5.07 Mil/cmm (4.30-5.70); RED CELL DISTRIBUTION WIDTH 12.3 % (11.5-20.0); WHITE BLOOD COUNT 7.3 Th/cmm (4.8-10.8)
[2018-04-11 20:29] LABS: INR 0.97 (0.5-1.4); PROTHROMBIN TIME (TEST) 10.1 SECONDS (9.5-11.5)
[2018-04-11 20:30] LABS: ALB/GLOB RATIO 1.7 (1.0-1.8); ALKALINE PHOSPHATASE 45 U/L (34-104); ANION GAP 13.5 (7.0-16.0); BILIRUBIN,TOTAL 0.4 mg/dL (0.3-1.0); BUN - UREA NITROGEN 14 mg/dL (7-25); CARBON DIOXIDE 26.7 mEq/L (21.0-31.0); CHLORIDE 101 mEq/L (98-107); CREATININE - SERUM 1.1 mg/dL (0.7-1.3); CREATININE KINASE 107 U/L (30-223); GFR AFRICAN-AMERICAN > 60.0 ml/min (>90); GFR NON AFRICAN-AMERICAN > 60.0 ml/min; GLUCOSE 118 mg/dL (70-105); POTASSIUM SERUM 3.2 mEq/L (3.5-5.1); SGOT 16 U/L (13-39); SGPT/ALT 20 U/L (7-52); SODIUM SERUM 138 mEq/L (136-145); TOTAL PROTEIN,SERUM 7.9 gm/dL (6.0-8.3)
[2018-04-11 20:31] LABS: CHOLESTEROL 199 mg/dL (<200); HDL -HIGH DENSITY LIPOPROTEIN 56 mg/dL (23-92); TRIGLYCERIDES 82 mg/dL (<150)
[2018-04-11 20:35] LABS: DDIMER QUANT < 100 ng/mL (100-400)
[2018-04-11] MEDS ORDERED: Potassium Chloride 20 mEq ER Tab PO ONE (21:00)
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
--- NOTE | 2018-04-12 08:51 | Diagnostic Imaging Report ---
Portable chest x-ray History: Pain Allowing for portable technique the heart size is normal. No focal pulmonary parenchymal processes. No hilar or mediastinal abnormalities. Impression: No acute abnormalities.
== END 2018-04-11 23:55 | disposition short-term general hospital (02) ==
LOC: ER 19:48
DX: I20.9 Angina pectoris, unspecified (principal); E87.6 Hypokalemia
CPT/HCPCS: 99285; 96374; 94760; 93005 ×2; 71045; 84484; 83880; 36415; 85379; 85025; 85610; 82550; 80053; 80061; Z7610; J2060

== ENCOUNTER 2018-09-30 20:51 | Emergency (ER) | payer BC ==
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
== END 2018-10-01 00:10 | disposition home or self-care (01) ==
LOC: ER 20:51
DX: S13.9XXA Sprain of joints and ligaments of unspecified parts of neck, initial encounter (principal); R51 Headache; V89.2XXA Person injured in unspecified motor-vehicle accident, traffic, initial encounter; Y93.89 Activity, other specified; Y92.89 Other specified places as the place of occurrence of the external cause; Y99.8 Other external cause status
CPT/HCPCS: 70450-TC; 71250-TC; 72125-TC